=== PATIENT | female | born 1940 | race Caucasian/White ===

== ENCOUNTER 2016-11-17 07:49 | Inpatient (IN) | payer OTHER, BC ==
[2016-10-19 14:47] VITALS: BMI 45.0
--- NOTE | 2016-10-19 15:27 | PAT Medication Instructions ---
Service Date Oct 19, 2016. Current Home Medication List Calcium Citrate-Vitamin D (Citracal + D3 Maximum), 1 TAB PO QPM Levothyroxine Sodium (Levothyroxine Sodium), 1 TAB PO QAM Lisinopril/Hctz (Zestoretic 20MG/12.5MG), 1 TAB PO QAM Ocuvite Preservision (Ocuvite Preservision), 1 TAB PO BID Omeprazole (Prilosec), 20 MG PO QAM Potassium Chloride (K-Tabs), 1 TAB PO QAM Medication Instructions For Your Scheduled Surgery - Hold the following medications the morning of surgery: Lisinopril/Hctz (Zestoretic 20MG/12.5MG), 1 TAB PO QAM Potassium Chloride (K-Tabs), 1 TAB PO QAM Ocuvite Preservision (Ocuvite Preservision), 1 TAB PO BID - Take the following medications the morning of surgery with a sip of water: Omeprazole (Prilosec), 20 MG PO QAM Levothyroxine Sodium (Levothyroxine Sodium), 1 TAB PO QAM - Take the following medications as scheduled the night before surgery: Calcium Citrate-Vitamin D (Citracal + D3 Maximum), 1 TAB PO QPM If you have any questions please call us at [phone] (Meg Melissa PA-C) or [phone] or [phone]
[2016-10-19 15:55] LABS: BASO % 0.3 %; BASO ABS # 0.02 K/uL (0-0.2); COMPLETE YES; EOS % 1.4 %; HEMATOCRIT 42.7 % (37-47); IG% 0.2 %; LYMPH % 19.6 %; MEAN CELL VOLUME 83.2 fL (80-100); MEAN CORPUSCULAR HEMOGLOBIN 27.5 pg (25-34); MEAN PLATELET VOLUME 10.4 fL (7.4-10.4); MONO % 9.7 %; NEUT % 68.8 %; PLATELET COUNT 180 K/uL (130-400); RED BLOOD COUNT 5.13 M/uL (4.2-5.4); WHITE BLOOD COUNT 6.62 K/uL (4.8-10.8)
--- NOTE | 2016-10-19 15:57 | DIAGNOSTIC IMAGING REPORT ---
CHEST 2 VIEWS ROUTINE CLINICAL HISTORY: Preoperative evaluation COMPARISON STUDY: Chest radiograph October 10, 2014 FINDINGS: Surgical clips project of the left hemithorax. There is no pneumothorax or pleural effusion. Lungs are clear. Pulmonary vascularity is normal. Cardiac size is normal. IMPRESSION: No acute cardiopulmonary findings. Electronically signed by: Shahab Lovelace M.D. 10/19/2016 3:56 PM
[2016-10-19 16:04] LABS: URINE APPEARANCE CLEAR (CLEAR); URINE BILIRUBIN NEG (NEG); URINE COLOR YELLOW; URINE NITRITE NEG (NEG); URINE SPECIFIC GRAVITY 1.019 (1.000-1.030); UROBILINOGEN NEG (NEG); ZZUR CULT IF INDIC CLEAN CATCH NO
[2016-10-19 16:07] LABS: MANUAL MICROSCOPIC REQUIRED? NO; PROTHROMBIN TIME (PATIENT) 10.3 SECONDS (9.0-12.0); REVIEW REQ? NO
[2016-10-19 16:12] LABS: BUN/CREATININE RATIO 14.4 (10-20); CREATININE 0.8 mg/dl (0.60-1.20); POTASSIUM 3.7 mmol/L (3.5-5.1)
[2016-10-19 16:18] LABS: ESTIMATED AVERAGE GLUCOSE 134 mg/dl; HA1C FLAG Normal (Normal)
[2016-10-19 16:21] LABS: CALCIUM 9.1 mg/dl (8.5-10.1)
--- NOTE | 2016-11-16 18:44 | HISTORY & PHYSICAL EXAMINATION ---
DATE OF ADMISSION: 11/17/2016 CHIEF COMPLAINT: Chronic right knee pain. HISTORY OF PRESENT ILLNESS: This is a 76-year-old female patient of Dr. Simpson'valentin complaining of chronic right knee pain, longstanding, now progressively getting worse. The patient has been diagnosed with end-stage osteoarthritis per clinical and radiographic exams. She has failed conservative treatment including acetaminophen, anti-inflammatories and steroid administration into the joint. The patient has also used a brace. The patient has increased pain with weightbearing activities and her pain does interfere with her activities of daily living. PAST MEDICAL HISTORY: Hypertension, sleep apnea with the use of CPAP, hypothyroidism, acid reflux, obesity, breast cancer. SOCIAL HISTORY: Nonsmoker, nondrinker. PAST SURGICAL HISTORY: Left knee replacement, section x3, hernia x2, breast surgery. FAMILY HISTORY: Noncontributory. REVIEW OF SYSTEMS: The patient complains of chronic right knee pain, otherwise denies any shortness of breath, chest pain, nausea, vomiting or any other joint complaint. MEDICATIONS: 1. Lisinopril/hydrochlorothiazide 20/12.5 daily. 2. Klor-Con 10 mg daily. 3. Levothyroxine 112 mcg daily. 4. Omeprazole 20 mg daily. 5. PreserVision 2 daily. 6 Citracal daily. ALLERGIES: SORBITOL IN FOOD. NARCOTICS; SHE CAN ONLY USES TYLENOL AND ULTRAM WITH IV MORPHINE. NO OXYCONTIN OR OXYCODONE. PHYSICAL EXAMINATION: GENERAL: A 76-year-old female in no acute distress. She is alert and oriented x3 and pleasant. HEENT: Normocephalic, atraumatic. Extraocular motions are intact. Pupils are equal and reactive to light. HEART: Tachycardic. She is at 150 beats per minute but regular. She states that she gets like this when she is nervous. We will obtain an EKG and medical clearance. LUNGS: Clear. ABDOMEN: Soft and nontender. Bowel sounds are present. EXTREMITIES: Right knee, she has a positive mild effusion. She has limited range of motion of 0-120 degrees with a varus deformity. She has medial joint line tenderness and crepitation with passive range of motion. She has 5/5 strength. Neurologically and neurovascularly, she is intact in her right lower extremity. DIAGNOSES: Right knee end-stage osteoarthritis, hypertension, sleep apnea with the use of CPAP, hypothyroidism, acid reflux, obesity, breast cancer, tachycardia which will be evaluated preoperatively. PLAN: The patient was advised of her diagnosis. Indications, risks, benefits, and postop course have all been reviewed. The patient wishes to proceed with a right total knee arthroplasty. Necessary consent forms, preoperative testing and clearances will be obtained.
[~2016-11-17] VITALS: Ht 149.9 cm; Wt 101.4 kg
[2016-11-17] VITALS (8 sets, daily range): BP systolic 104–180; BP diastolic 62–100; PULSE 72–107; TEMP 36.4–36.8; O2SAT 93–98; Ht 149.9 cm; Wt 101.4 kg
[2016-11-17] MEDS: TRANEXAMIC ACID INJ 1,000 MG in SODIUM CHLORIDE 0.9% 100ML 100 ML IV SCH ×2 (06:30→11:27)
[~2016-11-17 07:49] MED LIST: ACETAMINOPHEN 500 MG TAB PO SCH; BUPIVACAINE 0.25% 30 ML VIAL ONE; BUPIVACAINE 0.5 % 5 MG/1 ML PF 10ML VIAL ONE; CALC1TAB9 PO; CEFAZOLIN 2000 MG/60 ML D5W 60 ML IV SCH; CeleBREX 200 MG CAP PO SCH; DEXAMETHASONE 4 MG TAB PO SCH; FAMOTIDINE 20 MG TAB PO SCH; GABAPENTIN 300 MG CAP PO SCH; LACTATED RINGER'S 1000ML IV SCH; LEVO112T4 PO; LISI-787 PO; METOCLOPRAMIDE HCL 10 MG TAB PO SCH; MULT-190 PO; POTA10TA PO; PRLSR20 PO; ROPIVACAINE 5MG/ML 30 ML 150 MG, BUPIVACAINE/EPINEPHR 0.5% MPF 30 ML, KETOROLAC TROMETH... INFIL SCH
[2016-11-17] MEDS ORDERED: FENTANYL CITRATE INJ 50 MCG/1 ML 2 ML VIAL ONE (10:09)
[2016-11-17] MEDS ORDERED: MIDAZOLAM HCL 1 MG/ML 2ML VIAL ONE (10:09)
--- NOTE | 2016-11-17 10:10 | History & Physical Bridge Note ---
H&P Re-Evaluation Bridge Note: I have examined the patient, reviewed the History & Physical and in the interval since the performance of the History & Physical I have noted the following changes of clinical significance: No changes noted
[2016-11-17] MEDS ORDERED: HYDROmorphone INJ 2 MG/ML SYR/VIAL IV PRN ×2 (10:30→12:00)
[2016-11-17] MEDS ORDERED: EpHEDrine SULFATE INJ 50 MG/ML AMP IV PRN ×2 (10:30→12:00)
[2016-11-17] MEDS ORDERED: ONDANSETRON INJ 2 MG/ML 2 ML VIAL IV PRN ×3 (10:30→13:45)
[2016-11-17] MEDS ORDERED: ATROPINE SULFATE 0.1 MG/ML 5ML SYR IV PRN ×2 (10:30→12:00)
[2016-11-17] MEDS ORDERED: PHENYLEPHRINE 100MCG/ML 5ML SYR IV PRN ×2 (10:30→12:00)
[2016-11-17] MEDS ORDERED: ORTHO JOINT ANESTHETIC ONE ×2 (10:36→10:44)
[2016-11-17] MEDS ORDERED: NURSING VERBAL MED ORDER ONE (11:00)
[2016-11-17] MEDS ORDERED: LACTATED RINGER'S 1000ML 500 ML IV SCH (11:45)
[2016-11-17] MEDS ORDERED: PHENYLEPHRINE HCL INJ 10 MG/ML VIAL ONE (12:23)
[2016-11-17] MEDS ORDERED: PROPOFOL IV EMULSION 10 MG/ML 20 ML VIAL IV ONE ×2 (12:23→13:35)
--- NOTE | 2016-11-17 13:11 | [facility] Operative Report ---
Operative Report Operative Date Nov 17, 2016. Pre-Operative Diagnosis Right Knee End Stage Osteoarthritis Post-Operative Diagnosis same Procedure(s) Performed right total knee replacement Surgeon Dr. Mitchell Simpson Marketing Automation Analyst Surgeon(s) Nile Barriga PA-C Estimated Blood Loss 5cc Findings djd medial compartment and patella varus grade 4 medial Specimens A. Right knee bone and tissue Drains 2 hemovac Anesthesia spinal regional orthomix Complication(s) None Disposition Recovery Room / PACU Indications end stage djd oa I attest to the content of the Intraoperative Record and any orders documented therein. Any exceptions are noted below.
[2016-11-17] MEDS ORDERED: BACITRACIN 50000 UNIT VIAL IR ONE (13:13)
[2016-11-17] MEDS ORDERED: POVIDONE-IODINE OP SOLN 30 ML BTL TOP ONE (13:13)
[2016-11-17] MEDS ORDERED: MAGNESIUM HYDROXIDE SUSP 30 ML UDC PO PRN (13:45)
[2016-11-17] MEDS ORDERED: MoRPHine SULFATE 2 MG/ML CARP IV PRN ×2 (13:45→16:15)
[2016-11-17] MEDS ORDERED: ZOLPIDEM TARTRATE 5 MG TAB PO PRN (13:45)
[2016-11-17] MEDS ORDERED: BISACODYL 10 MG SUPP PR PRN (13:45)
[2016-11-17] MEDS ORDERED: TRAMADOL HCL 50 MG TAB PO PRN (13:45)
[2016-11-17] MEDS ORDERED: SOD PHOSPHATE/SOD BIPHOSPHATE ENEMA 132 ML BTL PR PRN (13:45)
--- NOTE | 2016-11-17 14:03 | Anesthesiology Progress Note ---
Anesthesia Post Op Note Date & Time Nov 17, 2016 at 14:02 Vital Signs Pain Intensity: 0 Vital Signs Past 12 Hours Date Time Temp Pulse Resp B/P Pulse Ox O2 Delivery O2 Flow Rate FiO2 11/17/16 14:00 94 16 117/67 95 Nasal Cannula 2 11/17/16 13:50 37.7 98 16 110/65 99 Mask 10 11/17/16 13:44 37.7 102 16 117/59 98 Mask 10 11/17/16 08:40 36.6 107 20 180/100 97 Room Air Notes Mental Status: alert / awake / arousable, participated in evaluation Pt Amnestic to Procedure: Yes Nausea / Vomiting: adequately controlled Pain: adequately controlled Airway Patency, RR, SpO2: stable & adequate BP & HR: stable & adequate Hydration State: stable & adequate Anesthetic Complications: no major complications apparent
--- NOTE | 2016-11-17 14:29 | DIAGNOSTIC IMAGING REPORT ---
RIGHT KNEE 1 OR 2 VIEWS ROUTINE CLINICAL HISTORY: Right knee degenerative joint disease. Arthroplasty. COMPARISON: None FINDINGS: Alignment of the right knee arthroplasty is anatomic. There is no fracture or unexpected radiopaque foreign body. Drains and skin ty are present. IMPRESSION: Expected findings following total right knee arthroplasty. Electronically signed by: Shahab Lovelace M.D. 11/17/2016 2:27 PM Dictated Date/Time: 11/17/2016 2:27 PM
[2016-11-17] MEDS ORDERED: HydrALAZINE HCL 20 MG/ML VIAL IV. PRN (16:15)
--- NOTE | 2016-11-17 16:18 | Medical Consult ---
Consultation Date of Consultation: Nov 17, 2016. Attending Physician: Mitchell Simpson M.D. Reason for Consultation: Medical management History of Present Illness This is a 76 y/o female with a history of HTN, hypothyroidism, HLD, NIGEL, GERD, and h/o breast cancer who presents s/p right TKA with Dr. Simpson on 11/17 for medical management. The patient reports feeling well post operatively. She denies any pain, numbness or tingling. She has not eaten, urinated, passed gas , or had a bowel movement yet. The patient denies fevers, chills, sweats, chest pain, palpitations, claudication, cough, wheezing, shortness of breath, nausea, vomiting, abdominal pain, dysuria, hematuria, urinary retention, paralysis, weakness, numbness and tingling. Past Medical/Surgical History HTN Hypothyroidism HLD NIGEL GERD H/o breast cancer, in remission Family History FH: breast cancer MOTHER SISTER FH: leukemia FATHER Lung cancer MOTHER Social History Smoking Status: Never Smoker Smokeless Tobacco Use: No Alcohol Use: occasionally (rarely wine) Drug Use: none Marital Status: Housing Status: lives with significant other Occupation Status: retired Allergies Coded Allergies: Sorbitol (Verified Allergy, Unknown, DIARRHEA, ABD CRAMPS, 11/17/16) Current Inpatient Medications Current Inpatient Medications Medications (Trade) Dose Ordered Sig/Taurus Route Start Time Stop Time Status Last Admin Dose Admin Lactated Ringer's 1,000 ml @ 60 mls/hr [id number] IV 11/17/16 06:00 11/17/16 22:39 11/17/16 09:25 60 MLS/HR Cefazolin Sodium (Ancef 2000mg/60 ml D5W) 60 ml @ 100 mls/hr PREOP IV 11/17/16 06:00 11/17/16 18:00 Acetaminophen (Tylenol Tab) 1,000 mg PREOP PO 11/17/16 06:00 11/17/16 18:00 11/17/16 09:00 1,000 MG Celecoxib (CeleBREX CAP) 200 mg PREOP PO 11/17/16 06:00 11/17/16 18:00 11/17/16 09:01 200 MG Dexamethasone (Decadron Tab) 8 mg PREOP PO 11/17/16 06:00 11/17/16 18:00 11/17/16 09:02 8 MG Famotidine (Pepcid Tab) 20 mg PREOP PO 11/17/16 06:00 11/17/16 18:00 11/17/16 09:02 20 MG Gabapentin (Neurontin Cap) 300 mg PREOP PO 11/17/16 06:00 11/17/16 18:00 11/17/16 09:01 300 MG Metoclopramide HCl 10 mg 10 mg PREOP PO 11/17/16 06:00 11/17/16 18:00 11/17/16 09:01 10 MG Tranexamic Acid/ Sodium Chloride (Cyklokapron Inj/ Nss 100ml) 110 ml @ 660 mls/hr TODAY@06,0630 IV 11/17/16 06:00 11/17/16 18:00 11/17/16 11:27 660 MLS/HR Hydromorphone HCl (Dilaudid Inj) 0.5 mg Q5M PRN IV 11/17/16 12:00 11/17/16 17:00 Ondansetron HCl (Zofran Inj) 4 mg ONE PRN IV 11/17/16 12:00 11/17/16 17:00 Ephedrine Sulfate (EpHEDrine SULFATE INJ) 5 mg Q5M PRN IV 11/17/16 12:00 11/17/16 17:00 Atropine Sulfate (Atropine Sulfate 0.1MG/Ml Inj) 0.5 mg Q1M PRN IV 11/17/16 12:00 11/17/16 17:00 Phenylephrine HCl (Obi-Synephrine 500MCG/5ML Syr) 100 mcg Q5M PRN IV 11/17/16 12:00 11/17/16 17:00 Levothyroxine Sodium (Synthroid Tab) 112 mcg DAILYBB PO 11/18/16 06:00 12/18/16 05:59 HCTZ/Lisinopril (Prinzide 20-12.5MG Tab) 1 tab QAM PO 11/18/16 09:00 12/18/16 08:59 Multivitamins/ Minerals (Multivitamin W/ Minerals Tab) 1 tab BID PO 11/17/16 21:00 12/17/16 20:59 Calcium/Vitamin D (Caltrate Plus Tab) 1 tab QPM PO 11/17/16 21:00 12/17/16 20:59 Non-Formulary Medication 1 tab 1 tab QAM PO 11/18/16 09:00 12/18/16 08:59 UNV Potassium Chloride/Dextrose/ Sod Cl 1,000 ml @ 100 mls/hr Q10H IV 11/17/16 16:30 11/18/16 16:29 Cefazolin Sodium/ Dextrose (Ancef Iv/D5 50ml) 60 ml @ 100 mls/hr Q8H IV 11/17/16 20:00 11/18/16 04:35 Celecoxib (CeleBREX CAP) 200 mg BID PO 11/17/16 21:00 12/17/16 20:59 Morphine Sulfate (MoRPHine SULFATE INJ) 2 mg Q2H PRN IV 11/17/16 13:45 12/01/16 13:44 Acetaminophen (Tylenol Tab) 1,000 mg Q8H PO 11/17/16 17:00 12/17/16 16:59 Magnesium Hydroxide (Milk Of Magnesia Susp) 30 ml Q6H PRN PO 11/17/16 13:45 12/17/16 13:44 Bisacodyl (Dulcolax Supp) 10 mg DAILY PRN MS 11/17/16 13:45 12/17/16 13:44 Sodium Biphosphate/ Sodium Phosphate (Fleet Enema) 132 ml DAILY PRN MS 11/17/16 13:45 12/17/16 13:44 Docusate Sodium (coLACE CAP) 100 mg BID PO 11/17/16 21:00 12/17/16 20:59 Diphenhydramine HCl (Benadryl Cap) 25 mg Q8H PRN PO 11/17/16 13:45 12/17/16 13:44 Zolpidem Tartrate (Ambien Tab) 5 mg HSZ PRN PO 11/17/16 13:45 12/17/16 13:44 Multivitamins (Multivitamin Tab) 1 tab QAM PO 11/18/16 09:00 12/18/16 08:59 Ondansetron HCl (Zofran Inj) 4 mg Q6H PRN IV 11/17/16 13:45 12/17/16 13:44 Pantoprazole Sodium (Protonix Tab) 40 mg QAM PO 11/18/16 09:00 12/18/16 08:59 Tramadol HCl (Ultram Tab) 1 tablet for pain rating... Q4H PRN PO 11/17/16 13:45 12/17/16 13:44 Rivaroxaban (Xarelto Tab) 10 mg Q24H PO 11/17/16 22:00 11/29/16 21:59 UNV Morphine Sulfate (MoRPHine SULFATE INJ) 4 mg Q2H PRN IV 11/17/16 16:15 12/01/16 16:14 Review of Systems Constitutional: No chills, No fever, No sweats Eyes: No diplopia, No eye pain, No worsening of vision ENT: No hearing loss, No sore throat, No tinnitus Respiratory: No cough, No shortness of breath, No wheezing Cardiovascular: No chest pain, No claudication, No palpitations Abdomen: No nausea, No pain, No vomiting Musculoskeletal: No calf pain, No joint pain, No muscle pain Genitourinary - Female: No dysuria, No hematuria, No urinary retention Neurologic: No numbness/tingling, No paralysis, No weakness Integumentary: No color change, No itch, No rash Physical Exam Date Time Temp Pulse Resp B/P Pulse Ox O2 Delivery O2 Flow Rate FiO2 11/17/16 15:50 36.7 85 18 118/74 97 Nasal Cannula 2.0 11/17/16 15:00 37.4 94 20 135/75 96 Nasal Cannula 2 11/17/16 14:45 37.4 92 20 137/74 96 Nasal Cannula 2 11/17/16 14:30 37.4 92 16 123/67 92 Nasal Cannula 2 11/17/16 14:20 92 16 121/70 96 Nasal Cannula 2 11/17/16 14:10 95 16 111/80 96 Nasal Cannula 2 11/17/16 14:00 94 16 117/67 95 Nasal Cannula 2 11/17/16 13:50 37.7 98 16 110/65 99 Mask 10 11/17/16 13:44 37.7 102 16 117/59 98 Mask 10 11/17/16 08:40 36.6 107 20 180/100 97 Room Air General Appearance: WD/WN, no apparent distress, + obese Head: normocephalic, atraumatic Eyes: normal inspection, PERRL, EOMI ENT: normal ENT inspection, hearing grossly normal, pharynx normal Neck: supple, no JVD, trachea midline Respiratory/Chest: lungs clear, normal breath sounds, no respiratory distress Cardiovascular: regular rate, rhythm, no gallop, no murmur Abdomen/GI: normal bowel sounds, non tender, soft, + hernia (ventral hernia) Extremities/Musculoskelatal: normal inspection, no calf tenderness, no pedal edema Neurologic/Psych: alert, normal mood/affect, oriented x 3 Skin: normal color, warm/dry, no rash Laboratory Results Last 24 Hours Test 11/17/16 08:49 11/17/16 14:11 Bedside Glucose 133 mg/dl 148 mg/dl Assessment & Plan 76 y/o female with a history of HTN, hypothyroidism, HLD, NIGEL, GERD, and h/o breast cancer who presents s/p right TKA with Dr. Simpson on 11/17 for medical management. -Pain management, DVT prophylaxis, and PT/OT as per primary team HTN--stable -Hold lisinopril/HCTZ 20/12.5 mg PO until renal function checked/stable and while on IVF -Cover with hydralazine 10 mg IV q6h prn SBP >180 Hypothyroidism -Continue Synthroid 112 mcg PO qd NIGEL--pt brought CPAP from home GERD -Continue pantoprazole 40 mg PO qd Code Status -Level I, FULL RESUSCITATION STATUS Thank you for this consultation. We will continue to follow. I agree with PA assessment and plan S/P TKA Pain controlled Resting comfortably in bed HTN controlled Monitor for acute blood loss anemia
[2016-11-17 17:02] LABS: BASO % 0.1 %; BASO ABS # 0.01 K/uL (0-0.2); COMPLETE YES; HEMATOCRIT 40.2 % (37-47); IG% 0.1 %; LYMPH % 6.6 %; LYMPH ABS # 0.52 K/uL (1.2-3.4); MEAN CELL VOLUME 82.7 fL (80-100); MEAN CORPUSCULAR HEMOGLOBIN 28.6 pg (25-34); MEAN CORPUSCULAR HGB CONC 34.6 g/dl (32-36); MEAN PLATELET VOLUME 10.4 fL (7.4-10.4); MONO % 1.4 %; NEUT % 91.8 %; PLATELET COUNT 185 K/uL (130-400); RED BLOOD COUNT 4.86 M/uL (4.2-5.4); WHITE BLOOD COUNT 7.93 K/uL (4.8-10.8)
[2016-11-17 17:23] LABS: CALCIUM 8.5 mg/dl (8.5-10.1); CREATININE 0.97 mg/dl (0.60-1.20); POTASSIUM 4.8 mmol/L (3.5-5.1)
[2016-11-17 17:36] LABS: BUN/CREATININE RATIO 17.3 (10-20)
[2016-11-17] MEDS: D5W AND 1/2NSS + 20MEQ KCL 1,000 ML IV SCH (17:40)
[2016-11-17] MEDS: ACETAMINOPHEN 500 MG TAB PO SCH (17:41)
[2016-11-17] MEDS: CEROVITE ADV FORMULA TAB PO SCH (20:44)
[2016-11-17] MEDS: DOCUSATE SODIUM 100 MG CAP PO SCH (20:44)
[2016-11-17] MEDS: CALCIUM 600MG + VIT D 400 IU TAB PO SCH (20:44)
[2016-11-17] MEDS: CeleBREX 200 MG CAP PO SCH (20:45)
[2016-11-17] MEDS: CEFAZOLIN IV 2,000 MG in DEXTROSE 5% 50ML 50 ML IV SCH (20:48)
[2016-11-17] MEDS: RIVAROXABAN 10 MG TAB PO SCH (21:36)
[2016-11-18] MEDS: ACETAMINOPHEN 500 MG TAB PO SCH ×4 (00:59→21:04)
[2016-11-18] MEDS: D5W AND 1/2NSS + 20MEQ KCL 1,000 ML IV SCH ×2 (02:10→13:01)
[2016-11-18] MEDS: CEFAZOLIN IV 2,000 MG in DEXTROSE 5% 50ML 50 ML IV SCH (03:38)
[2016-11-18 03:39] VITALS: BP 137/75; PULSE 79; TEMP 36.5; O2SAT 93
[2016-11-18] MEDS: LEVOTHYROXINE 112 MCG TAB PO SCH (05:20)
[2016-11-18 05:47] LABS: HEMATOCRIT 36.1 % (37-47); MEAN CORPUSCULAR HEMOGLOBIN 28.3 pg (25-34); MEAN CORPUSCULAR HGB CONC 34.1 g/dl (32-36); MEAN PLATELET VOLUME 10.5 fL (7.4-10.4); PLATELET COUNT 171 K/uL (130-400); RED BLOOD COUNT 4.35 M/uL (4.2-5.4)
[2016-11-18 06:20] LABS: BUN/CREATININE RATIO 19.8 (10-20); CALCIUM 8.7 mg/dl (8.5-10.1); CREATININE 0.93 mg/dl (0.60-1.20); POTASSIUM 4.5 mmol/L (3.5-5.1)
--- NOTE | 2016-11-18 07:05 | OPERATIVE REPORT ---
DATE OF OPERATION: 11/17/2016 INDICATION FOR PROCEDURE: The patient is a 76-year-old female who presents with end-stage osteoarthritis of right knee. She is [id number] medial compartment, varus knee. She had successful left knee replacement in the past 3 months proceed with knee replacement of right knee. PREOPERATIVE DIAGNOSIS: End-stage osteoarthritis, right knee. POSTOPERATIVE DIAGNOSIS: Same. PROCEDURE: Right total knee arthroplasty. SURGEON: Mitchell Simpson MD TELEGRAPH REPEATER TECHNICIAN: Nile Barriga PA-C ANESTHESIA: Spinal sedation, regional block and local. OPERATIVE PROCEDURE: The patient was taken to the operating room, anesthetized under a spinal anesthetic regional block and placed supine on the operating room table. Pneumatic tourniquet was placed about her right upper thigh. Then her right lower extremity was prepped and draped in sterile fashion with ChloraPrep. Her leg was examined and she had 0 through 120 degrees range of motion with no instability. A pneumatic tourniquet was placed about her right upper thigh and then her right lower extremity was prepped and draped with ChloraPrep. Then, her leg was elevated, exsanguinated with Esmarch bandage. Pneumatic tourniquet was raised to 350 mmHg. Anterior incision was made across her right knee. Skin was incised sharply. Subcutaneous flaps were elevated. Incision was made through medial retinaculum, extended up into the mid third of the quadriceps tendon and extended down to the medial tibial tubercle. Intra-articular findings demonstrate she had grade 4 DJD in the medial compartment, [id number] and some moderate patellofemoral DJD. I used the Fletcher [employer] Nephew Journey 2.0 total knee arthroplasty system using Contact [employer] Once!aire MRI templating. Femur sized for a 5, tibia for a 3 on preoperative templating. To expose the knee the infrapatellar fat pad was resected and some of the fat pad over the anterior femur resected for placement of the component in that area. The lateral synovial bands were released. The cruciate ligaments were resected, the menisci were resected. The femur was exposed. The custom femoral cutting block was pinned in position and the distal femoral cut was made. Then the 5-in-1 cutting block was placed; the anterior, posterior and chamfer cuts were made for the 5 femur. Then the knee was extended and a subperiosteal peel lateral release was performed around the patella. The patella width was measured and width was reproduced using a 35 mm patellar component. We used a freehand cut technique to make the cut. The excess lateral facet was beveled off to prevent any impingement. Drill holes were made for the patella. Then attention was taken to the tibia which was subluxed and the proximal tibial cutting guide was pinned in position and the proximal tibial cut was made. Lamina piping supervisor was used to assure ligamentous balance in extension and flexion. Then the tibia was re-subluxed. The 3 tibial trial was externally rotated in line with the tibial tubercle, pinned in position. The punch for the stem was used. Then, the 5 femoral trial was inserted, centered and the notch cutting devices were used. The collet was placed. An 11 poly insert gave the balance of ligaments through full range of motion and the patella tracked centrally. The trials were then removed and the anesthetic cocktail was injected per protocol. The knee was copiously irrigated with pulsatile lavage and antibiotic solution and bacitracin. The final components were cemented with Palacos G cement. Final components were the 5 Oxinium posterior stabilized Fletcher \T\ Nephew Journey 2.0 femur, the 3 primary tibial baseplate, 11 mm posterior stabilized poly insert and 35 patella. While the cement was curing, we used the Betadine soak per protocol. The knee was again irrigated with antibiotic solution and bacitracin. Two drains were brought out laterally and connected to a Hemovac. The quadriceps tendon and medial retinaculum were closed with interrupted [id number] #1 Vicryl sutures. The subcutaneous tissue was closed with interrupted 2-0 Vicryl. Skin closed with ty. Silverlon dressing was placed. The patient tolerated the procedure well. Nile Barriga PA-C was my assistant scientist. He functioned as assistant scientist for the entire procedure. He assisted in patient positioning, prepping, and draping. I attest to the content of the Intraoperative Record and any orders documented therein. Any exceptio ns are noted below.
[2016-11-18 07:26] VITALS: BP 117/74; PULSE 69; TEMP 36.5; O2SAT 96
[2016-11-18] MEDS: PANTOprazole SOD 40 MG TAB PO SCH (07:39)
--- NOTE | 2016-11-18 07:49 | Anesthesiology Progress Note ---
Anesthesia Post Op Note Date & Time Nov 18, 2016 at 07:48 Vital Signs Pain Intensity: 0.0 Vital Signs Past 12 Hours Date Time Temp Pulse Resp B/P Pulse Ox O2 Delivery O2 Flow Rate FiO2 11/18/16 07:26 36.5 69 16 117/74 96 Room Air 11/18/16 03:39 36.5 79 16 137/75 93 Room Air 11/18/16 00:01 CPAP 11/17/16 23:28 74 104/62 11/17/16 23:11 36.6 81 18 93 CPAP 11/17/16 20:10 36.6 75 18 121/76 97 Nasal Cannula 2.0 Notes Mental Status: alert / awake / arousable, participated in evaluation Pt Amnestic to Procedure: Yes Nausea / Vomiting: adequately controlled Pain: adequately controlled Airway Patency, RR, SpO2: stable & adequate BP & HR: stable & adequate Hydration State: stable & adequate Neuraxial Anesthesia: sensory block resolved Anesthetic Complications: no major complications apparent
[2016-11-18] MEDS: POTASSIUM CHLORIDE 10 MEQ TABCR PO SCH (08:37)
[2016-11-18] MEDS: MULTIVITAMIN TAB PO SCH (08:38)
[2016-11-18] MEDS: CEROVITE ADV FORMULA TAB PO SCH ×2 (08:38→21:03)
[2016-11-18] MEDS: CeleBREX 200 MG CAP PO SCH ×2 (08:38→21:03)
[2016-11-18] MEDS: DOCUSATE SODIUM 100 MG CAP PO SCH ×2 (08:40→21:00)
[2016-11-18] MEDS ORDERED: LISINOPRIL/HCTZ 20/12.5MG TAB PO SCH (09:00)
[2016-11-18 10:33] VITALS: BP 143/81; PULSE 87; TEMP 36.5; O2SAT 98
--- NOTE | 2016-11-18 14:43 | Orthopedic Progress Note ---
Orthopedic Progress Note Date of Service Nov 18, 2016. Subjective Post OP Day: 1 Reports: feeling well, Denies: SOB, calf pain, chest pain, light headedness, nausea / vomiting Objective calves soft nontender, N/V intact, dressing C/D/I, A&O x3, toes mobile Date Time Temp Pulse Resp B/P Pulse Ox O2 Delivery O2 Flow Rate FiO2 11/18/16 10:33 36.5 87 16 143/81 98 Room Air 11/18/16 07:37 Room Air 11/18/16 07:26 36.5 69 16 117/74 96 Room Air 11/18/16 03:39 36.5 79 16 137/75 93 Room Air 11/18/16 00:01 CPAP 11/17/16 23:28 74 104/62 11/17/16 23:11 36.6 81 18 93 CPAP 11/17/16 20:10 36.6 75 18 121/76 97 Nasal Cannula 2.0 11/17/16 18:20 36.7 76 18 121/74 97 Nasal Cannula 2.0 11/17/16 17:20 36.8 74 18 153/83 98 Nasal Cannula 2.0 11/17/16 16:20 36.4 72 18 128/73 98 Nasal Cannula 2.0 11/17/16 15:50 36.7 85 18 118/74 97 Nasal Cannula 2.0 11/17/16 15:30 Nasal Cannula 2.0 11/17/16 15:30 Nasal Cannula 2.0 11/17/16 15:00 37.4 94 20 135/75 96 Nasal Cannula 2 11/17/16 14:45 37.4 92 20 137/74 96 Nasal Cannula 2 Laboratory Results 24 Hours: Test 11/17/16 16:38 11/18/16 05:20 White Blood Count 7.93 K/uL Red Blood Count 4.86 M/uL Hemoglobin 13.9 g/dL 12.3 g/dL Hematocrit 40.2 % 36.1 % Mean Corpuscular Volume 82.7 fL Mean Corpuscular Hemoglobin 28.6 pg Mean Corpuscular Hemoglobin Concent 34.6 g/dl Platelet Count 185 K/uL Mean Platelet Volume 10.4 fL Neutrophils (%) (Auto) 91.8 % Lymphocytes (%) (Auto) 6.6 % Monocytes (%) (Auto) 1.4 % Eosinophils (%) (Auto) 0.0 % Basophils (%) (Auto) 0.1 % Neutrophils # (Auto) 7.28 K/uL Lymphocytes # (Auto) 0.52 K/uL Monocytes # (Auto) 0.11 K/uL Eosinophils # (Auto) 0.00 K/uL Basophils # (Auto) 0.01 K/uL Assessment & Plan Assessment: POD 1 s/p Right TKA Plan: PT/OT Planning on OPPT upon dc Plan for dc tomorrow Inhouse Planning Pain Management: Celebrex, Ultram, Morphine, PO Tylenol DVT Prophylaxis: TEDs, SCDs, Xarelto Discharge Planning Discharge Planning: home with oppt Pain Management: Ultram, PO Tylenol DVT Prophylaxis: TEDs, Xarelto Therapy: Physical Therapy
[2016-11-18 14:52] VITALS: BP 118/70; PULSE 74; TEMP 36.4; O2SAT 96
--- NOTE | 2016-11-18 14:53 | Progress Note ---
Subjective Subjective Date of Service: Nov 18, 2016. Pt evaluation today including: conversation w/ patient, physical exam, chart review, review of studies, review of inpatient medication list Notes: denies complains, BP was ok until 10 am where it was in 140`s Review of Systems Constitutional: No fever ENT: No hearing loss Cardiac: No chest pain Abdomen: No pain Neurologic: No memory loss Psychiatric: No depression symptoms Endo: No fatigue Skin: No rash Physical Exam Vital Signs Vital Signs Past 24 Hours: Date Time Temp Pulse Resp B/P Pulse Ox O2 Delivery O2 Flow Rate FiO2 11/18/16 10:33 36.5 87 16 143/81 98 Room Air 11/18/16 07:37 Room Air 11/18/16 07:26 36.5 69 16 117/74 96 Room Air 11/18/16 03:39 36.5 79 16 137/75 93 Room Air 11/18/16 00:01 CPAP 11/17/16 23:28 74 104/62 11/17/16 23:11 36.6 81 18 93 CPAP 11/17/16 20:10 36.6 75 18 121/76 97 Nasal Cannula 2.0 11/17/16 18:20 36.7 76 18 121/74 97 Nasal Cannula 2.0 11/17/16 17:20 36.8 74 18 153/83 98 Nasal Cannula 2.0 11/17/16 16:20 36.4 72 18 128/73 98 Nasal Cannula 2.0 11/17/16 15:50 36.7 85 18 118/74 97 Nasal Cannula 2.0 11/17/16 15:30 Nasal Cannula 2.0 11/17/16 15:30 Nasal Cannula 2.0 11/17/16 15:00 37.4 94 20 135/75 96 Nasal Cannula 2 Physical Exam: General Appearance: WD/WN, no apparent distress Eyes: bilateral eyes normal inspection ENT: hearing grossly normal, pharynx normal Neck: supple, no JVD Respiratory/Chest: chest non-tender, no respiratory distress Cardiovascular: regular rate, rhythm, no gallop Abdomen: normal bowel sounds, soft Extremities: normal range of motion, normal inspection Neurologic/Psychiatric: no motor/sensory deficits, alert, normal mood/affect Skin: normal color, no rash Medications Medications: Current Inpatient Medications Medications (Trade) Dose Ordered Sig/Taurus Route Start Time Stop Time Status Last Admin Dose Admin Levothyroxine Sodium (Synthroid Tab) 112 mcg DAILYBB PO 11/18/16 06:00 12/18/16 05:59 11/18/16 05:20 112 MCG HCTZ/Lisinopril (Prinzide 20-12.5MG Tab) 1 tab QAM PO 11/18/16 09:00 12/18/16 08:59 Future Hold Multivitamins/ Minerals (Multivitamin W/ Minerals Tab) 1 tab BID PO 11/17/16 21:00 12/17/16 20:59 11/18/16 08:38 1 TAB Calcium/Vitamin D (Caltrate Plus Tab) 1 tab QPM PO 11/17/16 21:00 12/17/16 20:59 11/17/16 20:44 1 TAB Potassium Chloride 10 meq 10 meq QAM PO 11/18/16 09:00 12/18/16 08:59 11/18/16 08:37 10 MEQ Potassium Chloride/Dextrose/ Sod Cl (D5W And 1/2nss + 20meq KCl) 1,000 ml @ 100 mls/hr Q10H IV 11/17/16 16:30 11/18/16 16:29 11/18/16 13:01 100 MLS/HR Celecoxib (CeleBREX CAP) 200 mg BID PO 11/17/16 21:00 12/17/16 20:59 11/18/16 08:38 200 MG Morphine Sulfate (MoRPHine SULFATE INJ) 2 mg Q2H PRN IV 11/17/16 13:45 12/01/16 13:44 Acetaminophen (Tylenol Tab) 1,000 mg Q8H PO 11/17/16 17:00 12/17/16 16:59 11/18/16 08:39 1,000 MG Magnesium Hydroxide (Milk Of Magnesia Susp) 30 ml Q6H PRN PO 11/17/16 13:45 12/17/16 13:44 Bisacodyl (Dulcolax Supp) 10 mg DAILY PRN KS 11/17/16 13:45 12/17/16 13:44 Sodium Biphosphate/ Sodium Phosphate (Fleet Enema) 132 ml DAILY PRN KS 11/17/16 13:45 12/17/16 13:44 Docusate Sodium (coLACE CAP) 100 mg BID PO 11/17/16 21:00 12/17/16 20:59 11/17/16 20:44 100 MG Diphenhydramine HCl (Benadryl Cap) 25 mg Q8H PRN PO 11/17/16 13:45 12/17/16 13:44 Zolpidem Tartrate (Ambien Tab) 5 mg HSZ PRN PO 11/17/16 13:45 12/17/16 13:44 Multivitamins (Multivitamin Tab) 1 tab QAM PO 11/18/16 09:00 12/18/16 08:59 11/18/16 08:38 1 TAB Ondansetron HCl (Zofran Inj) 4 mg Q6H PRN IV 11/17/16 13:45 12/17/16 13:44 Pantoprazole Sodium (Protonix Tab) 40 mg QAM PO 11/18/16 09:00 12/18/16 08:59 11/18/16 07:39 40 MG Tramadol HCl (Ultram Tab) 1 tablet for pain rating... Q4H PRN PO 11/17/16 13:45 12/17/16 13:44 Rivaroxaban (Xarelto Tab) 10 mg Q24H PO 11/17/16 22:00 11/29/16 21:59 11/17/16 21:36 10 MG Morphine Sulfate (MoRPHine SULFATE INJ) 4 mg Q2H PRN IV 11/17/16 16:15 12/01/16 16:14 Hydralazine HCl (HydrALAZINE INJ) 10 mg Q6H PRN IV. 11/17/16 16:15 12/17/16 16:14 Laboratory Data Labs: Last 24 Hours Test 11/17/16 16:38 11/18/16 05:20 White Blood Count 7.93 K/uL 11.90 K/uL Red Blood Count 4.86 M/uL 4.35 M/uL Hemoglobin 13.9 g/dL 12.3 g/dL Hematocrit 40.2 % 36.1 % Mean Corpuscular Volume 82.7 fL 83.0 fL Mean Corpuscular Hemoglobin 28.6 pg 28.3 pg Mean Corpuscular Hemoglobin Concent 34.6 g/dl 34.1 g/dl Platelet Count 185 K/uL 171 K/uL Mean Platelet Volume 10.4 fL 10.5 fL Neutrophils (%) (Auto) 91.8 % Lymphocytes (%) (Auto) 6.6 % Monocytes (%) (Auto) 1.4 % Eosinophils (%) (Auto) 0.0 % Basophils (%) (Auto) 0.1 % Neutrophils # (Auto) 7.28 K/uL Lymphocytes # (Auto) 0.52 K/uL Monocytes # (Auto) 0.11 K/uL Eosinophils # (Auto) 0.00 K/uL Basophils # (Auto) 0.01 K/uL RDW Standard Deviation 39.6 fL 40.0 fL RDW Coefficient of Variation 13.1 % 13.2 % Immature Granulocyte % (Auto) 0.1 % Immature Granulocyte # (Auto) 0.01 K/uL Sodium Level 139 mmol/L 140 mmol/L Potassium Level 4.8 mmol/L 4.5 mmol/L Chloride Level 105 mmol/L 105 mmol/L Carbon Dioxide Level 26 mmol/L 25 mmol/L Anion Gap 8.0 mmol/L 10.0 mmol/L Blood Urea Nitrogen 17 mg/dl 18 mg/dl Creatinine 0.97 mg/dl 0.93 mg/dl Est Creatinine Clear Calc Drug Dose 53.4 ml/min 55.7 ml/min Estimated GFR () 66.7 70.2 Estimated GFR (Non- 57.5 60.5 BUN/Creatinine Ratio 17.3 19.8 Random Glucose 156 mg/dl 182 mg/dl Calcium Level 8.5 mg/dl 8.7 mg/dl Assessment and Plan 76 y/o female with a history of HTN, hypothyroidism, HLD, NIGEL, GERD, and h/o breast cancer who presents s/p right TKA with Dr. Simpson on 11/17 for medical management. s/p Right TKA cont Pain management, DVT prophylaxis, and PT/OT as per primary team HTN restart lisinopril/HCTZ 20/12.5 mg PO hydralazine 10 mg IV q6h prn SBP >180 stop IVF Hypothyroidism Continue Synthroid 112 mcg PO qd NIGEL, stable, pt brought CPAP from home GERD Continue pantoprazole 40 mg PO qd Code Status FULL RESUSCITATION STATUS DVT/GI proph as per surgery
[2016-11-18 16:20] VITALS: O2SAT 96
[2016-11-18] MEDS: CALCIUM 600MG + VIT D 400 IU TAB PO SCH (22:06)
[2016-11-18] MEDS: RIVAROXABAN 10 MG TAB PO SCH (22:07)
[2016-11-18 23:07] VITALS: BP 132/75; PULSE 73; TEMP 36.7; O2SAT 95
[2016-11-19] MEDS: LEVOTHYROXINE 112 MCG TAB PO SCH (05:50)
[2016-11-19 06:13] LABS: HEMATOCRIT 33.9 % (37-47); MEAN CELL VOLUME 83.7 fL (80-100); MEAN CORPUSCULAR HEMOGLOBIN 27.9 pg (25-34); MEAN CORPUSCULAR HGB CONC 33.3 g/dl (32-36); MEAN PLATELET VOLUME 10.7 fL (7.4-10.4); PLATELET COUNT 165 K/uL (130-400); RED BLOOD COUNT 4.05 M/uL (4.2-5.4); WHITE BLOOD COUNT 7.33 K/uL (4.8-10.8)
[2016-11-19 06:40] VITALS: BP 125/77; PULSE 71; TEMP 36.6; O2SAT 96
[2016-11-19 06:49] LABS: BUN/CREATININE RATIO 21.3 (10-20); CALCIUM 9.1 mg/dl (8.5-10.1); CREATININE 0.89 mg/dl (0.60-1.20); POTASSIUM 4.6 mmol/L (3.5-5.1)
[2016-11-19] MEDS: MULTIVITAMIN TAB PO SCH (07:25)
[2016-11-19] MEDS: DOCUSATE SODIUM 100 MG CAP PO SCH (07:26)
[2016-11-19] MEDS: CEROVITE ADV FORMULA TAB PO SCH (07:26)
[2016-11-19] MEDS: PANTOprazole SOD 40 MG TAB PO SCH (07:26)
[2016-11-19] MEDS: POTASSIUM CHLORIDE 10 MEQ TABCR PO SCH (07:27)
[2016-11-19] MEDS: CeleBREX 200 MG CAP PO SCH (07:27)
[2016-11-19] MEDS: ACETAMINOPHEN 500 MG TAB PO SCH (07:28)
[2016-11-19 08:13] VITALS: BP 139/85; PULSE 80; TEMP 36.6; O2SAT 98
[2016-11-19 08:16] VITALS: O2SAT 98
--- NOTE | 2016-11-19 09:15 | Orthopedic Progress Note ---
Orthopedic Progress Note Date of Service Nov 19, 2016. Subjective Post OP Day: 2 Reports: feeling well, pain controlled w PO medications, Denies: SOB, calf pain , chest pain, complaints, light headedness, nausea / vomiting Objective calves soft nontender, N/V intact, capillary refill less than 2 sec., dressing C /D/I, A&O x3, toes mobile silverlon in tact Date Time Temp Pulse Resp B/P Pulse Ox O2 Delivery O2 Flow Rate FiO2 11/19/16 08:17 Room Air 11/19/16 08:16 98 Room Air 11/19/16 08:13 36.6 80 16 139/85 98 Room Air 11/19/16 06:40 36.6 71 18 125/77 96 Room Air 11/19/16 00:15 CPAP 11/18/16 23:07 36.7 73 16 132/75 95 Room Air 11/18/16 16:20 96 Room Air 11/18/16 14:52 36.4 74 18 118/70 96 Room Air 11/18/16 10:33 36.5 87 16 143/81 98 Room Air Laboratory Results 24 Hours: Test 11/19/16 05:35 Hematocrit 33.9 % Hemoglobin 11.3 g/dL Assessment & Plan Assessment: POD 2 s/p Right TKA Plan: PT/OT Planning on OPPT upon dc Plan for dc tomorrow Inhouse Planning Pain Management: Celebrex, Ultram, Morphine, PO Tylenol DVT Prophylaxis: TEDs, SCDs, Xarelto Discharge Planning Discharge Planning: home with oppt Pain Management: Ultram, PO Tylenol DVT Prophylaxis: TEDs, Xarelto Therapy: Physical Therapy, Occupational Therapy
[2016-11-19] MEDS ORDERED: ONDA8TAB12 PO (09:18)
[2016-11-19] MEDS ORDERED: ACET-1138 PO (09:18)
[2016-11-19] MEDS ORDERED: CLB200 PO (09:18)
[2016-11-19] MEDS ORDERED: ULT50X PO (09:18)
[2016-11-19] MEDS ORDERED: XRL10 PO (09:18)
--- NOTE | 2016-11-19 09:19 | Discharge Instructions ---
Discharge Instructions Admission Reason for Admission: Right Knee Degenerative Joint Disease Discharge Discharge Diagnosis / Problem: Right TKA Discharge Goals Goal(s): Improve function Activity Recommendations Activity Limitations: as noted below . Instructions / Follow-Up Instructions / Follow-Up ACTIVITY RECOMMENDATIONS: SELF CARE INSTRUCTIONS AFTER TOTAL KNEE REPLACEMENT A. You may need to continue a physical therapy program after discharge from the hospital. There are several options available to you. Your doctor will assist you in selecting the best one for you. 1. An out-patient facility 2 to 3 times a week for therapy or home therapy. 2. Continue working on all exercises taught to you in the hospital. Your goals should be to increase bending of your knee to 90 degrees and beyond and to fully straighten your knee. B. You may progress at your own pace from walking with a walker or crutches to a cane; then to no assistive devices. C. Make walking a part of your daily routine. Be up as much as comfortable with rest periods throughout the day. Rest with leg elevation is very important. Use the ice wrap frequently for the first 3-4 weeks. D. There are no restrictions on activities. You may ride in a car, shop, participate in customer success director and all social activities. E. Wear the long elastic stockings (GORDY hose) 20 hours a day for 2 weeks after surgery. They can be removed several times a day for laundering and for a bath. F. You may shower, no tub baths until cleared by your doctor. SPECIAL CARE INSTRUCTIONS: VERY IMPORTANT TO READ AND REVIEW A. There are a few signs you need to watch for after you are home. Call [facility] if you notice any of the followin. Increased severe knee pain. Some pain is expected especially when you exercise. 2. Increased swelling in your leg or knee; pain or swelling of the calf muscle in either lower leg. 3. Any fluid drainage from the incision. 4. Shortness of breath or chest pain. B. Please call [facility] at if you have any concerns or questions about your operation or recovery. The doctor or his nurse will return your call promptly. C. You must take antibiotics before dental work, bladder, bowel or other surgery. Your doctor will provide you with a permanent care to carry describing this precaution. IMPORTANT: * REMEMBER TO TAKE ASPIRIN, 81 MG, TWICE DAILY FOR 4 WEEKS UNLESS OTHERWISE DIRECTED. THIS IS YOUR BLOOD THINNER. * HIGH RISK PATIENTS MAY BE PRESCRIBED A STRONGER BLOOD THINNER. THIS WILL BE PROVIDED AT DISCHARGE. * CALL IF INCREASED PAIN, REDNESS, DRAINAGE OR FEVER GREATER THAT 101. * WEAR GORDY HOSE 20 HOURS PER DAY FOR 2 WEEKS. * YOU MAY HAVE A LARGE BAND-AID LIKE DRESSING (SILVERON). THIS WILL REMAIN ON YOUR INCISION FOR 7 DAYS, THEN CAN BE REMOVED. IF INCISION IS LEAKING THROUGH DRESSING, CALL THE OFFICE . FOLLOW UP VISIT: If appointment is not already scheduled: Please call [facility] to make a follow-up appointment for 2 weeks after your surgery at . Current Hospital Diet Patient's current hospital diet: Regular Diet Discharge Diet Recommended Diet: Regular Diet Procedures Procedures Performed: Right Total Knee Arthroplasty - Cemented Pending Studies Studies pending at discharge: no Laboratory Results Hemoglobin A1c Test 10/19/16 15:32 Range/Units Estimated Average Glucose 134 mg/dl Hemoglobin A1c 6.3 H 4.5-5.6 % Medical Emergencies . Who to Call and When: Medical Emergencies: If at any time you feel your situation is an emergency, please call [phone] immediately. . Non-Emergent Contact Non-Emergency issues call your: Primary Care Provider . "Provider Documentation" section prepared by Nile Barriga. VTE Core Measure Inpt VTE Proph given/why not?: Other Anticoagulation (Xarelto), T.E.D. Stockings, SCD's
[2016-11-19 09:38] VITALS: BP 139/85; PULSE 80; TEMP 36.6; O2SAT 98
--- NOTE | 2016-12-04 16:03 | DISCHARGE SUMMARY ---
HISTORY OF PRESENT ILLNESS: This is a 76-year-old female patient of Dr. Simpson'valentin complaining of chronic right knee pain. She was diagnosed with end-stage osteoarthritis and elected to proceed with a right total knee arthroplasty. PAST MEDICAL HISTORY: Hypertension, sleep apnea with CPAP, hypothyroidism, acid reflux, obesity and breast cancer. POSTOPERATIVE COURSE: The patient underwent a right total knee arthroplasty on 11/17/2016. She was followed closely with medical consultation, physical therapy, pain control and DVT prophylaxis in the form of Xarelto. The patient did very well postoperatively with no complications and was discharged home on postoperative day #2. PHYSICAL EXAMINATION ON DISCHARGE: Right knee Silverlon dressing was clean, dry and intact. There was no redness or drainage. She had no calf tenderness. Negative Homans sign. Neurologically and neurovascularly she was intact in her right lower extremity. DIAGNOSES: Status post right total knee arthroplasty with a history of hypertension, sleep apnea, hypothyroidism, acid reflux, obesity and breast cancer. PLAN: The patient was discharged home with outpatient physical therapy. She will continue her preadmission medications and pain medications. She will continue a course of Xarelto for DVT prophylaxis for a total of 12 days. She will follow up as an outpatient as scheduled.
== END 2016-11-19 10:05 | disposition home or self-care (01) | DRG 470 ==
LOC: ENRESERVTM → ENRESERVDT → C.ACU 07:49 → C.3E 10:00
PROVIDERS: ADMIT Orthopaedic Surgery Sports Medicine; ATTEND Orthopaedic Surgery Sports Medicine
PROC: 0SRC0J9 Replacement of Right Knee Joint with Synthetic Substitute, Cemented, Open Approach (ICD-10-PCS; principal; 2016-11-17 11:00)
DX: M17.11 Unilateral primary osteoarthritis, right knee (principal); Z68.42 Body mass index [BMI] 45.0-49.9, adult; E03.9 Hypothyroidism, unspecified; K21.9 Gastro-esophageal reflux disease without esophagitis; E66.01 Morbid (severe) obesity due to excess calories; I10 Essential (primary) hypertension; E78.5 Hyperlipidemia, unspecified; E11.9 Type 2 diabetes mellitus without complications; G47.33 Obstructive sleep apnea (adult) (pediatric); M21.161 Varus deformity, not elsewhere classified, right knee; F41.9 Anxiety disorder, unspecified; R00.0 Tachycardia, unspecified; M54.5 Low back pain; G89.29 Other chronic pain; Z96.652 Presence of left artificial knee joint; Z99.89 Dependence on other enabling machines and devices; Z92.21 Personal history of antineoplastic chemotherapy; Z85.3 Personal history of malignant neoplasm of breast; Z92.3 Personal history of irradiation; Z79.899 Other long term (current) drug therapy

== ENCOUNTER → 2017-01-24 | Outpatient (CLI) | payer OTHER, BC ==
[~2017-01-24] MED LIST changes: +ACET-1138 PO; -ACETAMINOPHEN 500 MG TAB PO SCH; -BUPIVACAINE 0.25% 30 ML VIAL ONE; -BUPIVACAINE 0.5 % 5 MG/1 ML PF 10ML VIAL ONE; -CEFAZOLIN 2000 MG/60 ML D5W 60 ML IV SCH; +CLB200 PO; -CeleBREX 200 MG CAP PO SCH; -DEXAMETHASONE 4 MG TAB PO SCH; -FAMOTIDINE 20 MG TAB PO SCH; -GABAPENTIN 300 MG CAP PO SCH; -LACTATED RINGER'S 1000ML IV SCH; -METOCLOPRAMIDE HCL 10 MG TAB PO SCH; -ROPIVACAINE 5MG/ML 30 ML 150 MG, BUPIVACAINE/EPINEPHR 0.5% MPF 30 ML, KETOROLAC TROMETH... INFIL SCH; +ULT50X PO; +XRL10 PO
[2017-01-24 13:55] LABS: ESTIMATED AVERAGE GLUCOSE 131 mg/dl; HA1C FLAG Normal (Normal)
[2017-01-24 13:58] LABS: ALT/SGPT 18 U/L (12-78); AST/SGOT 14 U/L (15-37); BLOOD UREA NITROGEN 9 mg/dl (7-18); BUN/CREATININE RATIO 11.9 (10-20); CALCIUM 9.5 mg/dl (8.5-10.1); CARBON DIOXIDE 30 mmol/L (21-32); CHLORIDE 103 mmol/L (98-107); CHOLESTEROL 186 mg/dl (0-200); CREATININE 0.79 mg/dl (0.60-1.20); GLUCOSE 118 mg/dl (70-99); POTASSIUM 4.1 mmol/L (3.5-5.1); SODIUM 140 mmol/L (136-145); TRIGLYCERIDES 116 mg/dl (0-150); VERY LOW DENSITY LIPOPROT CALC 23 mg/dl
[2017-01-24 14:14] LABS: CHOLESTEROL/HDL RATIO 3.7; HDL CHOLESTEROL 50 mg/dl; LDL CHOLESTEROL CALCULATED 113 mg/dl; THYROID STIMULATING HORMONE 0.237 uIu/ml (0.300-4.500)
--- NOTE | 2017-01-28 10:07 | CODING QUERY MEDICAL NECESSITY ---
SUPPORTING DIAGNOSIS NEEDED Dr. Moe, A supporting diagnosis is required for the test/procedure performed on this patient in order for us to be reimbursed by the patient's insurance. Please provide a supporting diagnosis for the following test/procedure listed below next to the test name along with your signature. *If there is no additional diagnosis for this patient that would support the following test/procedure please document that below next to the test/procedure. Test(s)/Procedure(s) that require a supporting diagnosis: * [id number] GLYCATED HEMOGLOBIN DIAGNOSIS: DATE OF SERVICE: 01/24/17 Provider Signature: Date: Thank you Seth Oconnor [facility] Information Management Once completed, please kindly fax back to [phone] For questions please call [phone]
== END | disposition home or self-care (01) ==
LOC: C.LABMFLN 07:51
PROVIDERS: ATTEND Family Medicine
DX: I10 Essential (primary) hypertension (principal); E78.00 Pure hypercholesterolemia, unspecified; E03.9 Hypothyroidism, unspecified; E11.9 Type 2 diabetes mellitus without complications

== ENCOUNTER → 2017-07-28 | Outpatient (CLI) | payer OTHER, BC ==
[2017-07-28 13:19] LABS: ESTIMATED AVERAGE GLUCOSE 140 mg/dl; HA1C FLAG Normal (Normal)
[2017-07-28 13:27] LABS: ALT/SGPT 17 U/L (12-78); AST/SGOT 15 U/L (15-37); BLOOD UREA NITROGEN 12 mg/dl (7-18); BUN/CREATININE RATIO 14.5 (10-20); CALCIUM 8.9 mg/dl (8.5-10.1); CARBON DIOXIDE 29 mmol/L (21-32); CHLORIDE 105 mmol/L (98-107); CHOLESTEROL 158 mg/dl (0-200); CREATININE 0.83 mg/dl (0.60-1.20); GLUCOSE 125 mg/dl (70-99); SODIUM 140 mmol/L (136-145)
[2017-07-28 13:38] LABS: CHOLESTEROL/HDL RATIO 3.2; HDL CHOLESTEROL 50 mg/dl; LDL CHOLESTEROL CALCULATED 88 mg/dl; THYROID STIMULATING HORMONE 0.361 uIu/ml (0.300-4.500); TRIGLYCERIDES 98 mg/dl (0-150); VERY LOW DENSITY LIPOPROT CALC 20 mg/dl
== END | disposition home or self-care (01) ==
LOC: C.LABMFLN 07:15
PROVIDERS: ATTEND Family Medicine
DX: I10 Essential (primary) hypertension (principal); E78.00 Pure hypercholesterolemia, unspecified; E03.9 Hypothyroidism, unspecified; R73.03 Prediabetes

== ENCOUNTER → 2018-01-30 | Outpatient (CLI) | payer OTHER, BC ==
[2018-01-30 13:08] LABS: HEMOGLOBIN A1C 6.5 % (4.5-5.6)
[2018-01-30 13:29] LABS: ALBUMIN 3.6 gm/dl (3.4-5.0); ALT/SGPT 23 U/L (12-78); BLOOD UREA NITROGEN 14 mg/dl (7-18); CALCIUM 8.8 mg/dl (8.5-10.1); CARBON DIOXIDE 30 mmol/L (21-32); CHOLESTEROL 150 mg/dl (0-200); CREATININE 0.86 mg/dl (0.60-1.20); GLUCOSE 123 mg/dl (70-99); POTASSIUM 3.7 mmol/L (3.5-5.1); SODIUM 138 mmol/L (136-145)
[2018-01-30 13:39] LABS: ALKALINE PHOSPHATASE 93 U/L (45-117); AST/SGOT 20 U/L (15-37); LDL CHOLESTEROL CALCULATED 83 mg/dl; TOTAL PROTEIN 7.3 gm/dl (6.4-8.2)
== END | disposition home or self-care (01) ==
LOC: C.LABMFLN 07:10
PROVIDERS: ATTEND Family Medicine
DX: E03.9 Hypothyroidism, unspecified (principal); I10 Essential (primary) hypertension; E78.00 Pure hypercholesterolemia, unspecified; R73.03 Prediabetes

== ENCOUNTER → 2018-02-02 | Outpatient (CLI) | payer OTHER, BC ==
[2018-02-02 14:11] LABS: CREATININE RANDOM URINE 86.8 mg/dl
== END | disposition home or self-care (01) ==
LOC: C.LABMFLN 10:59
PROVIDERS: ATTEND Family Medicine
DX: E11.9 Type 2 diabetes mellitus without complications (principal)

== ENCOUNTER → 2018-05-29 | Outpatient (CLI) | payer OTHER, BC ==
[~2018-05-29] MED LIST changes: -ACET-1138 PO; +CALC-452 PO; -CALC1TAB9 PO; -CLB200 PO; +GLC/500 PO; +ONDA4TAB10 SL; -ULT50X PO; -XRL10 PO
[2018-05-29 13:59] LABS: ALBUMIN 3.6 gm/dl (3.4-5.0); TOTAL PROTEIN 7.6 gm/dl (6.4-8.2)
== END | disposition home or self-care (01) ==
LOC: C.LABMFLN 07:41
PROVIDERS: ATTEND Family Medicine
DX: R74.0 Nonspecific elevation of levels of transaminase and lactic acid dehydrogenase [LDH] (principal); L30.9 Dermatitis, unspecified